=== PATIENT | female | born 1985 | race Caucasian/White ===

== ENCOUNTER 2024-01-08 09:15 | Outpatient (RCR) | payer BC, SELFPAY | END 2024-05-07 23:59 | disposition home or self-care (01) | PROVIDERS: Visit Provider Nurse Practitioner Family | DX: M54.2 Cervicalgia (principal); R29.898 Other symptoms and signs involving the musculoskeletal system; Z51.89 Encounter for other specified aftercare | CPT/HCPCS: 97110; 97140; 97162 ==

== ENCOUNTER 2024-01-19 09:12 | Outpatient (CLI) | payer BC, SELFPAY ==
--- NOTE | 2024-01-19 09:15 | CRLHL7_ITS ---
For Patients: As a result of the Century Cures Act, medical imaging exams and procedure reports are released immediately into your electronic medical record. You may view this report before your referring provider. If you have questions, please contact your health care provider. INDICATION: Neck pain TECHNIQUE: Noncontrast sagittal T1, T2, STIR and axial GRE sequences are provided. No comparisons. FINDINGS: The overall stature, alignment and intrinsic marrow signal of the cervical spine is within normal limits. Cervical cord is normal. C2-3: Unremarkable. C3-4: Mild broad-based posterior disc bulge effaces the ventral thecal sac resulting in mild central canal narrowing. C4-5, C5-6, C6-7: Minor disc osteophyte complex results in no central canal or foraminal narrowing. C7-T1: Unremarkable. IMPRESSION: 1. Minor discogenic degenerative change at C3-4 resulting in mild central canal narrowing. 2. Milder degenerative changes within the remainder of the cervical spine as outlined above. Dictated by Tavares Dawn MD @ 01/19/2024 11:55:08 AM (Electronically Signed)
--- NOTE | 2024-01-19 10:00 | CRLHL7_ITS ---
For Patients: As a result of the Century Cures Act, medical imaging exams and procedure reports are released immediately into your electronic medical record. You may view this report before your referring provider. If you have questions, please contact your health care provider. Indication: Headaches. Extremity numbness. Technique: Noncontrast sagittal T1, axial FLAIR, T2, diffusion weighted sequences are provided. No comparisons. Findings: The ventricles, sulci and gyri are normal size, shape and contour for age. The midline structures are centrally located with no evidence of shift. There are no suspicious intra or extra-axial fluid collections. No region of restricted diffusion. Expected flow voids in the cavernous carotids and basilar artery. Impression: 1. No radiographic evidence of acute intracranial abnormalities. Dictated by Tavares Dawn MD @ 01/19/2024 11:53:43 AM (Electronically Signed)
== END 2024-01-19 09:13 | disposition home or self-care (01) ==
LOC: MRI 09:15
PROVIDERS: PCP Nurse Practitioner Family; Visit Provider Nurse Practitioner Family
DX: R51.9 Headache, unspecified (principal); R20.0 Anesthesia of skin; M54.2 Cervicalgia; M50.31 Other cervical disc degeneration, high cervical region
CPT/HCPCS: 70551; 72141